=== PATIENT | male | born 1975 | race Caucasian/White ===

== ENCOUNTER 2016-10-25 08:09 | Outpatient (CLI) | payer OTHER ==
[2016-10-25 08:42] LABS: #Basophils 0.1 thou/uL (0.0-0.2); #Lymphocytes 1.3 thou/uL (1.20-3.40); #Monocytes 0.7 thou/uL (0.11-0.59); #Neutrophils 7.5 thou/uL (1.40-6.50); %Basophils 1.1 % (0.0-1.0); %Eosinophils 0.3 % (0.0-10.0); %Monocytes 7.7 % (0.0-10.0); Red Blood Cell (RBC) Count 5.59 mill/uL (4.70-6.10); White Blood Cell (WBC) Count 9.6 thou/uL (4.8-10.8)
[2016-10-25 09:00] LABS: ALT (SGPT) 24 U/L (0-55); AST (SGOT) 13 U/L (5-34); Alkaline Phosphatase 44 U/L (40-150); Anion Gap 14 mmol/L (10-20); BUN (Urea Nitrogen) 13 mg/dL (8.9-20.6); Bilirubin, Total 0.4 mg/dL (0.2-1.2); Calc. Creatinine Clearance 0 mL/min (70-130); Calcium 9.8 mg/dL (7.8-10.44); Carbon Dioxide 27 mmol/L (22-29); Chloride 106 mmol/L (98-107); Estimated GFR-MDRD 84; Globulin 2.4 g/dL (2.4-3.5); LDL Cholesterol, Calculated 183 mg/dL; Protein, Total 7.1 g/dL (6.0-8.3)
== END 2016-10-25 08:10 | disposition home or self-care (01) ==
LOC: BURLAB 08:09
PROVIDERS: ATTEND Family Medicine
DX: Z00.00 Encounter for general adult medical examination without abnormal findings (principal)
CPT/HCPCS: 80050; 80061

== ENCOUNTER 2022-01-13 07:54 | Outpatient (CLI) | payer OTHER ==
[2022-01-13] MEDS ORDERED: Iopamidol 370 76% 100 ML VIAL FS ONE (07:55)
== END 2022-01-13 07:55 | disposition home or self-care (01) ==
LOC: BURCT 07:54
PROVIDERS: ATTEND Family Medicine
DX: R10.84 Generalized abdominal pain (principal); K86.89 Other specified diseases of pancreas
CPT/HCPCS: 74177; Q9967

== ENCOUNTER 2023-02-01 11:39 | Outpatient (CLI) | payer BC | END 2023-02-01 11:40 | disposition home or self-care (01) | LOC: BURRAD 11:39 | PROVIDERS: ATTEND Family Medicine | DX: M25.511 Pain in right shoulder (principal); M25.512 Pain in left shoulder ==

== ENCOUNTER 2025-07-24 09:00 | Outpatient (CLI) | payer OTHER ==
[2025-07-24] MEDS ORDERED: Iopamidol 370 76% 100 ML VIAL ONE (11:03)
== END 2025-07-24 09:01 | disposition home or self-care (01) ==
LOC: BURCT 09:00
PROVIDERS: ATTEND Family Medicine
DX: R91.1 Solitary pulmonary nodule (principal)
CPT/HCPCS: 71260; Q9967